=== PATIENT | male | born 1930 | race Asian ===

== ENCOUNTER 2017-02-13 01:35 | Emergency (ER) | payer MEDICARE ==
[~2017-02-13] VITALS: Ht 152.4 cm; Wt 50.0 kg
[~2017-02-13 01:35] MED LIST: COUMADIN 1MG1 MG/TAB PO; LORTAB 5/500 501 TAB PO; NO HOME MEDICATIONS; TYLENOL ARTHRITIS PO; VICODIN 5/5001 UDTAB PO; ZOVIRAX800 MG PO
[2017-02-13] MEDS ORDERED: VENTOLIN0.09 MG IH (01:41)
[2017-02-13] MEDS ORDERED: COUMADIN 2MG2 MG/TAB PO (01:58)
[2017-02-13 01:59] LABS: BASO % 0.1 % (0.0-2.0); GRAN # 11.6 (1.4-6.5); GRAN % 83.7 % (42.2-75.2); HEMATOCRIT 40.8 % (42.0-52.0); LYMPH # 0.6 (1.2-3.4); MEAN CELL VOLUME 100 fl (80.0-100.0); MEAN CORPUSCULAR HEMOGLOBIN 32 pg (27.0-31.0); MEAN CORPUSCULAR HGB CONC 32 g/dl (33.0-37.0); MEAN PLATELET VOLUME 9.6 fl (7.4-10.4); MONO # 1.6 (0.1-0.6); MONO % 11.6 % (1.7-9.3); PLATELET COUNT 375 K/mm3 (130-400); WHITE BLOOD COUNT 13.9 K/mm3 (4.8-10.8)
[2017-02-13] MEDS ORDERED: FLOVENT 110MCG7.9 GM IH (02:00)
[2017-02-13] MEDS ORDERED: TYLENOL 8 HR PO (02:01)
[2017-02-13 02:06] LABS: PARTIAL THROMBOPLASTIN TIME 69.1 SECONDS (26.0-37.0)
[2017-02-13 02:08] LABS: ADJUSTED CALCIUM 9.5 mg/dL (8.4-10.2); ALANINE AMINOTRANSFERASE 435 U/L (21-72); ALBUMIN 4.4 gm/dL (3.5-5.0); ALKALINE PHOSPHATASE 375 U/L (50-136); ANION GAP 19 mmol/L (7-16); BILIRUBIN,TOTAL 2.2 mg/dL (0.0-1.0); BLOOD UREA NITROGEN 53 mg/dL (9-20); CALCIUM 9.8 mg/dL (8.4-10.2); CARBON DIOXIDE 23 mmol/L (22-30); CHLORIDE 96 mmol/L (98-107); CREATININE, serum 0.93 mg/dL (0.66-1.25); GLUCOSE 140 mg/dL (74-106); LIPASE 89 U/L (23-300); POTASSIUM 5.2 mmol/L (3.4-5.0); SODIUM 138 mmol/L (137-145)
[2017-02-13 02:13] LABS: INR 14.7 (0.8-3.0)
[2017-02-13 02:20] LABS: B-TYPE NATRIURETIC PEPTIDE 382 pg/mL (0-450)
[2017-02-13 02:22] LABS: TROPONIN-I < 0.012 ng/mL (0.000-0.034)
[2017-02-13 05:44] VITALS: TEMP 97.4
[2017-02-13 08:37] VITALS: BP 140/94; PULSE 104
== END 2017-02-13 08:22 | disposition short-term general hospital (02) ==
LOC: COL.ER 01:35
PROVIDERS: Emergency Medicine
DX: A41.9 Sepsis, unspecified organism (principal); I31.3 Pericardial effusion (noninflammatory); J90 Pleural effusion, not elsewhere classified; R79.1 Abnormal coagulation profile; I10 Essential (primary) hypertension; J44.9 Chronic obstructive pulmonary disease, unspecified; Z87.891 Personal history of nicotine dependence; Z86.711 Personal history of pulmonary embolism; Z86.718 Personal history of other venous thrombosis and embolism; Z79.01 Long term (current) use of anticoagulants; Z90.79 Acquired absence of other genital organ(s)
CPT/HCPCS: C9132; J2185; J3370; J3430; J7030; J7050; Q9967